=== PATIENT | female | born 1945 | race Caucasian/White ===

== ENCOUNTER 2017-03-25 14:25 | Inpatient (IN) ==
[2017-03-25] MEDS ORDERED: ASPIRIN PO STA (14:43)
[2017-03-25] MEDS ORDERED: ASPIRIN ONE (14:58)
--- NOTE | 2017-03-25 15:12 | Diag Imaging Result Doc PS360 ---
EXAM: CHEST-PORTABLE HISTORY: CP TECHNIQUE: AP portable upright at 1500 COMMENT: There is cardiomegaly with left ventricular enlargement. There is minimal atelectasis in the right costophrenic angle. Otherwise the lung roth are clear. Considering differences in projection there is been no significant change since 03/31/2016. IMPRESSION: Borderline cardiomegaly. Minimal right lower lobe atelectasis. Electronically signed by Freddy Montoya 03/25/2017 3:10 PM
[2017-03-25 15:30] LABS: URINE CULTURE NEEDED? NO; URINE MICRO REVIEW NEEDED? NO; URINE SOURCE CLEAN CATCH
[2017-03-25 15:42] LABS: INR 0.98; PROTIME 10.3 Seconds (9.2-11.7)
[2017-03-25 15:49] LABS: ALBUMIN 3.6 g/dL (3.5-5.0); CALCIUM 9.1 mg/dL (8.8-10.2); MAGNESIUM 1.6 mg/dL (1.5-2.7); POTASSIUM 3.9 mmol/L (3.5-5.1); TOTAL BILIRUBIN 0.28 mg/dL (0.20-1.00); TOTAL PROTEIN 6.6 g/dL (6.3-8.3)
[2017-03-25 15:55] LABS: MANUAL DIFF NEEDED? NO
[2017-03-25 15:56] LABS: BASO% 0.4 % (0.0-0.8); EOS# 0.88 X1000 (0.0-0.7); HEMATOCRIT 36.9 % (37.0-47.0); HEMOGLOBIN 12.4 g/dL (12.0-16.0); IMM GRAN# 0.08 X1000 (0.0-0.04); IMM GRAN% 0.4 % (0.0-0.5); LYMPH% 45.8 % (20.5-51.1); MCHC 33.6 g/dL (33-37); MCV 80.4 FL (81-99); MONO# 1.76 X1000 (0.11-0.59); MONO% 8.1 % (1.7-9.3); MPV 10.8 FL (7.4-10.4); NEUT% 41.3 % (42.2-75.2); PLT 369 X1000 (130-400); RBC 4.59 XMIL (4.2-5.4)
[2017-03-25 16:00] LABS: BILIRUBIN URINE NEGATIVE (NEGATIVE); BLOOD URINE NEGATIVE (NEGATIVE); COLOR YELLOW; GLUCOSE URINE NEGATIVE (NEGATIVE); LEUKOCYTES URINE NEGATIVE (NEGATIVE); NITRITE URINE NEGATIVE (NEGATIVE); PH URINE 5.5; PROTEIN URINE NEGATIVE (NEGATIVE); SP GRAVITY URINE 1.008; TURBIDITY URINE CLEAR (CLEAR); UROBILINOGEN URINE NORMAL (NORMAL)
[2017-03-25 16:01] LABS: UR EPITHELIAL CELLS <10 /HPF (<10); URINE BACTERIA NEGATIVE /HPF; URINE RBC <10 /HPF (<10); URINE WBC <10 /HPF (<10)
--- NOTE | 2017-03-25 17:02 | ED EKG INTERP ---
This chart was entered by Tamanna Cavazos, acting as scribe for Dorian Bourne MD. EKG Interpretation - EKG Time of EKG reading by physician:: 14:03 EKG Read and Signed by:: Dorian Bourne EKG Interpretation (*Must complete 3 of following elements*): Abnormal (normal sinus rhythm, left axis deviation, left bundle branch block, abnormal ECG) Rate: 78 [place]: left (left axis deviation) QRS: LBB Prior EKG Comparison: unchanged from prior This chart was documented by the indicated scribe, (Tamnana Cavazos) and accurately reflects the services I performed and decisions made by mn, Dorian Bourne MD, as attested by the provider's signature.
--- NOTE | 2017-03-25 17:20 | PROVIDER DOCUMENTATION ---
This chart was entered by Tamanna Cavazos, acting as scribe for Dorian Bourne MD. HPI-Chest Pain - General Chief Complaint: Epigastric Pain Stated Complaint: chest pain Time Seen by Provider: 03/25/17 14:30 Source: patient Allergies/Adverse Reactions: Patient Allergies Allergy/AdvReac Type Severity Reaction Status Date / Time azithromycin Allergy Severe HIVES Verified 03/25/17 14:44 oxycodone HCl * Allergy Severe HIVES Verified 03/25/17 14:44 [From Percocet] Sulfa (Sulfonamide Allergy Severe HIVES Verified 03/25/17 14:44 Antibiotics) [Sulfa(Sulfonamide Antibiotics)] tramadol Allergy Severe VOMITING Verified 03/25/17 14:44 erythromycin base Allergy Mild HIVES Verified 03/25/17 14:44 [Erythromycin Base] hydrocodone bitartrate * AdvReac Severe MIGRAINE Verified 03/25/17 14:44 [From Lortab] HEADACHE nalbuphine HCl * AdvReac Severe BRADYCARDIA Verified 03/25/17 14:44 [From Nubain] AND HYPOTENSION Home Medications: Home Medication List Medication Instructions Recorded Confirmed Last Taken Type Digoxin 125 mcg PO DAILY 01/02/15 03/25/17 03/25/17 History Furosemide [Lasix] 40 mg PO QHS 01/02/15 03/25/17 03/24/17 History Furosemide [Lasix] 80 mg PO QAM 01/02/15 03/25/17 03/25/17 History Metformin [Glucophage] 1,000 mg PO BID 01/02/15 03/25/17 03/25/17 History Valsartan [Diovan] 160 mg PO DAILY 01/02/15 03/25/17 03/25/17 History Carvedilol 25 mg PO BID 10/10/15 03/25/17 03/25/17 History Insulin Detemir [Levemir Flextouch] 50 unit SUBQ DAILY 10/10/15 03/25/17 History Aspirin 162 mg PO DAILY 03/25/17 03/25/17 03/25/17 History - History of Present Illness-CP Nature of Presenting Problem: pt is a 71 year old female present to the ER with cc of chest pain. Pt states that it is easing up now. She states she had an NV on march. She denies and stent placement. pt states she has a hx of ITP, Lupus, DM. Denies vomiting and diarrhea or SOB. Pt states when she started having chest pain she felt a little sick at the stomach. pt states chest pain started about an hour ago.. hs of cervical CA. Denies taking steroids. Pt states when chest pain started she was in the kitchen making some black sauce. Pt states last stress text x 1 year ago and there was no blockage. Location: reports: substernal Chest Pain Radiation: reports: no radiation Quality of Pain: reports: none Onset/Duration: 1-3 hours ago Timing: improving Context/Activities at Onset: reports: none Modifying Factors: improves with: nothing Associated Symptoms: reports: nausea. denies: fever/chills, vomiting Aspirin Treatment Today: provided at home Prior Chest Pain/Cardiac Workup: reports: heart attack, stress test Similar Symptoms Previously?: Yes Recently Seen Here or By Another Healthcare Provider: No Review of Systems - Adult - REVIEW OF SYSTEMS - ADULT Constitutional: denies: chills, fever, fatique Eyes: denies: discharge, dry eyes, decreased vision, blurred vision Ears, Nose, Mouth & Throat: denies: ear discharge, ear pain Cardiovascular: reports: chest pain. denies: edema, heart murmur Respiratory: reports: no symptoms reported Gastrointestinal: reports: no symptoms reported Genitourinary: reports: no symptoms reported Musculoskeletal: reports: no symptoms reported Integumentary: reports: no symptoms reported Neurological: reports: no symptoms reported Psychiatric: reports: no symptoms reported Endocrine: reports: no symptoms reported Hematologic/Lymphatic: reports: no symptoms reported Allergic/Immunologic: reports: no symptoms reported All Other Systems: Reviewed and Negative Past History - Adult - PAST MEDICAL HISTORY-ADULT Review of Records: reports: Nursing Assessment Review Major Childhood Illnesses: reports: denies history Cardiovascular: reports: A-Fib, CHF, HTN, other (LBB) Respiratory: reports: asthma Gastrointestinal: reports: denies history Obstetrical/Gynecological: reports: other (cervial ca) Genitourinary: reports: denies history Musculoskeletal: reports: denies history Neurological: reports: denies history Endocrine/Immune: reports: anemia (hemolytic), Diabetes, lupus, other ( leukocytosis) Other Conditions: reports: denies history - PRIOR SURGERIES/PROCEDURES Surgical/Procedure History: reports: appendectomy, cholecystectomy, hysterectomy , other (spleenectomy) - PRIOR HOSPITALIZATIONS Prior Hospitalizations: reports: none - IMMUNIZATION STATUS Childhood Immunizations: See Nurse Assessment Flu Vaccine: See Nurse Assessment - FAMILY HISTORY Family History: reviewed, not pertinent - SOCIAL HISTORY Smoking: denies Substance Use: denies Physical Exam-General - PHYSICAL EXAM-ADULT Initial Vital Signs Reviewed: Yes - CONSTITUTIONAL General Appearance: appears well, alert, no apparent distress - EYES Eyes: PERRL/EOMI, pink conjunctivae - HEAD, EARS, NOSE, MOUTH & THROAT HENMT: moist mucous membranes, normal ENT inspection, TMs normal, pharynx normal - NECK Neck: non-tender, full range of motion - RESPIRATORY Respiratory: chest non-tender, lungs clear, normal breath sounds, no pleuratic chest pain, no respiratory distress, no accessory muscle use - CARDIOVASCULAR Cardiovascular: normal peripheral pulses, regular rate, rhythm - GASTROINTESTINAL (ABDOMEN) Abdominal Exam: normal bowel sounds, non tender, soft - MUSCULOSKELETAL Back Exam: no CVA tenderness Extremity: normal range of motion, non-tender, normal gait, normal capillary refill - SKIN Integumentary: normal color, normal turgor, warm/dry - NEUROLOGIC Neurologic: grossly normal, no motor/sensory deficits - PSYCHIATRIC Psych/Mental Status: normal mood/affect, normal thought content, normal thought process, oriented x 3 Progress - PLAN OF CARE/RESULTS Progress/Plan/Lab Results: Vital Signs - 8 hr 03/25/17 14:36 03/25/17 16:22 Temperature 97.6 F Pulse Rate 79 78 Respiratory Rate 18 18 Blood Pressure 129/84 153/62 O2 Sat by Pulse Oximetry 97 97 Laboratory Results - last 24 hr 03/25/17 03/25/17 03/25/17 15:00 15:00 15:00 WBC 21.85 H RBC 4.59 Hgb 12.4 Hct 36.9 L MCV 80.4 L MCH 27.0 MCHC 33.6 RDW Std Deviation 16.1 H Plt Count 369 MPV 10.8 H Immature Gran % (Auto) 0.4 Neut % (Auto) 41.3 L Lymph % (Auto) 45.8 Mineral % (Auto) 8.1 Eos % (Auto) 4.0 Baso % (Auto) 0.4 Immature Gran # (Auto) 0.08 H Neut # (Auto) 9.04 H Lymph # (Auto) 10.00 H Mineral # (Auto) 1.76 H Eos # (Auto) 0.88 H Baso # (Auto) 0.09 PT INR PTT (Actin FS) D-Dimer Sodium 140 Potassium 3.9 Chloride 97 L Carbon Dioxide 25 Anion Gap 18 BUN 22 Creatinine 1.0 H Estimated GFR/1.73 m2 55 BUN/Creatinine Ratio 22 Glucose 171 H Calculated Osmolality 287 Calcium 9.1 Magnesium 1.6 Total Bilirubin 0.28 AST 15 ALT 11 Alkaline Phosphatase 65 Creatine Kinase 21 L Troponin T Mkm-C-Tnddejizcan Pept Total Protein 6.6 Albumin 3.6 Globulin 3.0 Albumin/Globulin Ratio 1.2 Amylase 41 Lipase 33 Urine Source Urine Color Urine Turbidity Urine pH Ur Specific [place] Urine Protein Ur Glucose (Stick) Ur Ketones (Stick) Urine Blood Urine Nitrite Urine Bilirubin Urobilinogen Dipstick Urine Leukocytes Urine WBC (Auto) Urine RBC (Auto) U Epithel Cells (Auto) Urine Bacteria (Auto) Digoxin 1.0 03/25/17 03/25/17 03/25/17 15:00 15:00 15:00 WBC RBC Hgb Hct MCV MCH MCHC RDW Std Deviation Plt Count MPV Immature Gran % (Auto) Neut % (Auto) Lymph % (Auto) Mineral % (Auto) Eos % (Auto) Baso % (Auto) Immature Gran # (Auto) Neut # (Auto) Lymph # (Auto) Mineral # (Auto) Eos # (Auto) Baso # (Auto) PT 10.3 INR 0.98 PTT (Actin FS) 25.0 D-Dimer 0.47 Sodium Potassium Chloride Carbon Dioxide Anion Gap BUN Creatinine Estimated GFR/1.73 m2 BUN/Creatinine Ratio Glucose Calculated Osmolality Calcium Magnesium Total Bilirubin AST ALT Alkaline Phosphatase Creatine Kinase Troponin T Hsa-Z-Mezckaiapzq Pept 470 H Total Protein Albumin Globulin Albumin/Globulin Ratio Amylase Lipase Urine Source Urine Color Urine Turbidity Urine pH Ur Specific [place] Urine Protein Ur Glucose (Stick) Ur Ketones (Stick) Urine Blood Urine Nitrite Urine Bilirubin Urobilinogen Dipstick Urine Leukocytes Urine WBC (Auto) Urine RBC (Auto) U Epithel Cells (Auto) Urine Bacteria (Auto) Digoxin 03/25/17 03/25/17 15:00 15:00 WBC RBC Hgb Hct MCV MCH MCHC RDW Std Deviation Plt Count MPV Immature Gran % (Auto) Neut % (Auto) Lymph % (Auto) Mineral % (Auto) Eos % (Auto) Baso % (Auto) Immature Gran # (Auto) Neut # (Auto) Lymph # (Auto) Mineral # (Auto) Eos # (Auto) Baso # (Auto) PT INR PTT (Actin FS) D-Dimer Sodium Potassium Chloride Carbon Dioxide Anion Gap BUN Creatinine Estimated GFR/1.73 m2 BUN/Creatinine Ratio Glucose Calculated Osmolality Calcium Magnesium Total Bilirubin AST ALT Alkaline Phosphatase Creatine Kinase Troponin T < 0.010 Epw-R-Ifugzwolhia Pept Total Protein Albumin Globulin Albumin/Globulin Ratio Amylase Lipase Urine Source CLEAN CATCH Urine Color YELLOW Urine Turbidity CLEAR Urine pH 5.5 Ur Specific [place] 1.008 Urine Protein NEGATIVE Ur Glucose (Stick) NEGATIVE Ur Ketones (Stick) NEGATIVE Urine Blood NEGATIVE Urine Nitrite NEGATIVE Urine Bilirubin NEGATIVE Urobilinogen Dipstick NORMAL Urine Leukocytes NEGATIVE Urine WBC (Auto) <10 Urine RBC (Auto) <10 U Epithel Cells (Auto) <10 Urine Bacteria (Auto) NEGATIVE Digoxin Orders Category Date Time Status Cardiac Monitoring DIRECTED Care 03/25/17 14:43 Active Saline Loc NOW Care 03/25/17 14:43 Active CHEST-PORTABLE [RAD] Stat Exams 03/25/17 14:43 Completed AMYLASE [CHEM] Stat Lab 03/25/17 15:00 Completed CBC WITH ELECTRONIC DIFF [HEME] Stat Lab 03/25/17 15:00 Completed CK PROFILE [SP CHEM] Stat Lab 03/25/17 15:00 Completed COMPREHENSIVE METABOLIC PANEL [CHEM] Stat Lab 03/25/17 15:00 Completed D-DIMER [CHEM] Stat Lab 03/25/17 15:00 Completed DIGOXIN [TDM] Stat Lab 03/25/17 15:00 Completed LIPASE [CHEM] Stat Lab 03/25/17 15:00 Completed MAGNESIUM [CHEM] Stat Lab 03/25/17 15:00 Completed PRO B-NATRIURETIC PEPTIDE Stat Lab 03/25/17 15:00 Completed PROTIME WITH INR [COAG] Stat Lab 03/25/17 15:00 Completed PTT [COAG] Stat Lab 03/25/17 15:00 Completed TROPONIN T Stat Lab 03/25/17 15:00 Completed UA NIMS W/REFLEX CULT [URINALYSIS] Stat Lab 03/25/17 15:00 Completed Aspirin Med 03/25/17 14:58 Discontinued 162 mg .ROUTE .STK-MED ONE Aspirin Med 03/25/17 14:43 Discontinued 325 mg PO STAT STA EKG [EKG] Stat Ther 03/25/17 14:43 Ordered Result Diagrams: 03/25/17 15:00 03/25/17 15:00 - XRAY 1 XRAY: Bilateral XRAY Study: Chest Impression: Abnormal (borderline cardiomegaly. minimal right lower lobe atelectasis (scalfano)) - CONSULTS/PCP/HOSPITALIST Notification Time Discussed: 17:19 Reason/Comments: Admit to Dr. Brothers Consult Disposition: Admit Departure - Departure Time of Disposition Decision: 17:14 DIAGNOSIS: Chest pain Qualifiers: Chest pain type: unspecified Qualified Code(s): R07.9 - Chest pain, unspecified Disposition: ADMITTED INPATIENT 09 Certified Medical Emergency: Emergent Condition: Stable Referrals and Follow-Ups: None,PCP [Primary Care Provider] - - Critical Care Note This patient required my direct & personal management of CC.: No This chart was documented by the indicated scribe, (Tamanna Cavazos) and accurately reflects the services I performed and decisions made by me, Dorian Bourne MD, as attested by the provider's signature.
[2017-03-25] MEDS ORDERED: ZOFRAN IV PRN (18:12)
[2017-03-25] MEDS ORDERED: GLUCOPHAGE PO SCH (19:00)
[2017-03-25] MEDS ORDERED: MAGNESIUM SULFATE 2 GM/S.W.I. 2 GM/50 ML IVPB IV ONE (19:45)
[2017-03-25] MEDS: LASIX PO SCH (20:30)
[2017-03-25] MEDS: COREG PO SCH (20:30)
[2017-03-25] MEDS: HUMULIN R SUBQ SCH (20:35)
--- NOTE | 2017-03-25 21:06 | HISTORY AND PHYSICAL ---
TREASURER: Dr. Bridgette Luke M.D. DEVELOPMENT VICE PRESIDENT: Dr.John Latasha M.D. CHIEF COMPLAINT: Chest pain this afternoon while I was cooking. HISTORY OF PRESENT ILLNESS: Ms Madrid is a 71-year-old female with a history of ITP, hemolytic anemia, coronary artery disease and CHF who presented to the ER today with a chief complaint of chest pain that started this afternoon when the patient was cooking on the grill. The patient reports that she was getting ready to take some meat off the grill when all of a sudden she started to experience chest pain that was associated with shortness of breath. The patient reports that she felt a little dizzy but denied having any nausea, vomiting or diaphoresis associated with the pain. Upon arrival to the ER the patient was still suffering with chest pain. She was given aspirin in the ER and eventually her pain subsided. At this time the patient states that she is chest pain-free. The patient states that it has been several years since she had a stress test done. She is followed by the arts therapist in [place]. Initial cardiac enzymes done in the ER noted to be negative and the EKG shows left bundle-branch block which appears to be present on a prior EKG. PAST MEDICAL HISTORY: 1. ITP. 2. Hemolytic anemia. 3. Hypertension. 4. Insulin-dependent diabetes mellitus type 2. 5. Morbid obesity. 6. CHF. 7. Coronary artery disease. SURGICAL HISTORY: 1. Appendectomy. 2. Cholecystectomy. 3. Hysterectomy. 4. Splenectomy. 5. Bladder sling. FAMILY HISTORY: Positive for coronary artery disease on her father's side. The patient's father also had coronary artery disease. SOCIAL HISTORY: The patient denies any tobacco, alcohol or illicit drug use. ALLERGIES: 1. Sulfa drugs. 2. Erythromycin. 3. Nubain. 4. Oxycodone. HOME MEDICATION: 1. Lasix 40 mg p.o. at bedtime. 2. Aspirin 162 mg p.o. daily. 3. Diovan 160 mg p.o. daily. 4. Glucophage 1000 mg p.o. twice a day. 5. Levemir 50 units subcutaneous daily. 6. Lasix 80 mg p.o. in the morning. 7. Digoxin 125 mcg oral daily. 8. Coreg 25 mg p.o. twice a day. REVIEW OF SYSTEMS: All other review of systems are negative. Please refer to the history of present illness for pertinent positives and negatives. PHYSICAL EXAMINATION: VITAL SIGNS: Temperature 97.6 degrees, blood pressure 139/79, heart rate 81, respirations 20, O2 saturations 98% on room air. GENERAL: This is an elderly female lying in bed in no acute distress. HEENT: Head normocephalic, atraumatic. Conjunctiva clear, EOMI, ANKIT. NECK: Supple, no JVD. No lymphadenopathy. No carotid bruits. LUNGS: Clear to auscultation bilaterally. No wheezing. No rales. No rhonchi. ABDOMEN: Positive bowel sounds. Soft, nontender, nondistended. EXTREMITIES: No edema. No cyanosis. No calf tenderness. NEUROLOGIC: The patient is alert oriented x3. No focal neurologic deficits noted. LABS: White blood cell count 21.8, hemoglobin 12, hematocrit 36, platelets 369, 000, D-dimer 0.47. Sodium 140, potassium 3.9, chloride 97, CO2 25, BUN 22, creatinine 1, glucose 171, calcium 9.1, magnesium 1.6, AST 15, ALT 11, CK 21, troponin T less than 0.01. CRP 23, ProBNP 470, albumin 3.6. UA negative. Chest x-ray shows borderline cardiomegaly. Minimal right lower lobe atelectasis. EKG shows left bundle branch block which appears to be chronic. ASSESSMENT AND PLAN: 1. Chest pain. Will admit the patient and place on telemetry and rule out MN with serial cardiac enzymes and repeat EKG. Will also consult cardiology given the patient's cardiac history. Patient may end up requiring a stress test. 2. Leukocytosis. The chest x-ray and urinalysis so far did not indicate any evidence of infection. Will check a CRP and a sedimentation rate and monitor the patient off of antibiotics. May consider a CT of the chest, abdomen and pelvis to rule out occult infection. 3. History of idiopathic thrombocytopenia. Aware. 4. Hemolytic anemia. Aware. Stable. 5. Hypertension. Controlled. 6. Insulin-dependent diabetes mellitus type 2. Will restart patient's Lantus and cover the patient with sliding scale insulin. Will hold the metformin at this time. 7. Morbid obesity. Aware. 8. Coronary artery disease. Continue on the current cardiac medications. 9. Deep vein thrombosis prophylaxis. Will start the patient on SCDs. cc: Mary Lou Hoffman MD MTDD
[2017-03-25] MEDS: TYLENOL PO PRN (22:55)
[2017-03-26] MEDS: HUMULIN R SUBQ SCH ×4 (06:29→21:30)
[2017-03-26 07:00] LABS: HEMATOCRIT 36.2 % (37.0-47.0); HEMOGLOBIN 11.9 g/dL (12.0-16.0); MCH 26.9 PG (27-31); MCHC 32.9 g/dL (33-37); MCV 81.9 FL (81-99); MPV 11.6 FL (7.4-10.4); RBC 4.42 XMIL (4.2-5.4)
[2017-03-26 07:42] LABS: AGAP 15; BUN 19 mg/dL (8-22); CALCIUM 8.7 mg/dL (8.8-10.2); CHLORIDE 101 mmol/L (98-107); COSMO 289; DIGOXIN 0.9 ng/mL (0.9-2.0); MAGNESIUM 2.2 mg/dL (1.5-2.7); SODIUM 142 mmol/L (136-145); TCO2 26 mmol/L (25-35)
[2017-03-26 07:52] LABS: FREE T4 1.31 ng/dL (0.93-1.70)
[2017-03-26] MEDS: DIOVAN PO SCH (08:21)
[2017-03-26] MEDS: LANOXIN PO SCH (08:21)
[2017-03-26] MEDS: COREG PO SCH ×2 (08:21→21:29)
[2017-03-26] MEDS: LASIX PO SCH ×2 (08:21→21:29)
[2017-03-26] MEDS: ASPIRIN PO SCH (08:21)
[2017-03-26] MEDS ORDERED: LEVEMIR SUBQ SCH (09:00)
--- NOTE | 2017-03-26 15:28 | CONSULTATION ---
DATE OF CONSULTATION: 03/26/2017 INDICATION: Chest pain. HISTORY OF PRESENT ILLNESS: Ms. aMdrid is a 71-year-old white female with a history of some degree of heart failure. Unclear if this is systolic or diastolic. She gets all of her care taken care of in [place] by Dr. Bridgette Luke with [facility]. She presented for evaluation of chest discomfort that began yesterday. She was apparently seated in the kitchen preparing some food, had not actually eaten and experienced an episode of substernal chest pain with no radiation. She had some nausea associated with this but no diaphoresis, no shortness of breath. She reports compliance with all of her medications. She has had cardiac catheterization several years ago which per her report were normal. Last stress test she thinks was around 2 years ago or more. Again, this was normal. She has not missed any of her medications. No recent coughs. No recent fevers. PAST MEDICAL HISTORY: Significant for. 1. She says heart failure. I do not have any records of this. 2. ITP. 3. Hypertension. 4. Diabetes mellitus. 5. Morbid obesity. SOCIAL HISTORY: No alcohol, tobacco, or illicit drugs. FAMILY HISTORY: Significant for coronary disease in her father's side. REVIEW OF SYSTEMS: A 10 system review of systems is negative except for those mentioned in HPI. PHYSICAL EXAMINATION: Vital signs: She is afebrile. Heart rate is 67, blood pressure 134/50. General: She is in no acute distress. HEENT: Oropharynx is moist. Normal dentition. Eye examination shows pink conjunctivae. White sclerae. Neck: Examination shows no obvious thyromegaly or thyroid tenderness. JVP is not elevated. Cardiovascular: Regular rate and rhythm. No murmurs. She has no S3. She has no S4. No lower extremity edema. No carotid bruits. Chest: Clear bilaterally. No increased work of breathing. Abdomen: Soft, nontender, nondistended. She has no obvious organomegaly. Skin Exam: Warm and dry throughout without any rashes. Neurological: Moving all extremities well. Cranial nerves 2-12 are intact without any sensation deficits. Psychiatric: Alert, oriented, pleasant, normal mood and affect. PERTINENT DATA: She had an EKG performed March 25 at 1430 showing sinus rhythm left bundle. Subsequent EKG at on March 26 at 6:09 showed sinus rhythm, left bundle branch block. This is a chronic finding for her. She had a chest x-ray showing borderline cardiomegaly with minimal right lower lobe atelectasis. Laboratory data shows a white count of 17.7, hematocrit is 36.2, platelet count 261,000. Sodium 142, potassium 4, BUN 19, creatinine 0.7. Cardiac enzymes are negative. Her proBNP is minimally elevated at 470. ASSESSMENT: 1. Some form of heart failure presumably chronic and not in acute exacerbation. 2. Chest pain. PLAN: We will obtain records from [facility] and plan tentatively for myocardial perfusion scan in the morning. Further recommendations to follow. cc: Satish Ynag MD
[2017-03-26] MEDS ORDERED: INSULIN PEN NEEDLES ONE (15:38)
--- NOTE | 2017-03-26 16:20 | ECHO REPORT ---
ORDER DATE: 03/26/2017 INDICATION: Coronary disease. CHF. Chest pain. FINDINGS: 1. Right atrium is normal size at 3.5 cm. 2. There is mild tricuspid regurgitation. RV systolic pressure of 48. 3. Normal RV size and systolic function. 4. Trace pulmonic insufficiency. 5. Mild left atrial enlargement at 4.8 cm. 6. No mitral valve prolapse. Mild mitral regurgitation. 7. Dilated left ventricle with an end-diastolic dimension of 6.2. There is normal wall thicknesses with a posterior and interventricular septal wall thickness 1.1 cm each. Severe reduction in LV systolic function with an estimated EF of 25-30%. There is wall motion consistent with intraventricular conduction delay. 8. Aortic valve opens well. Although it is somewhat sclerotic it does not appear stenotic. There is trace aortic insufficiency. The valve appears trileaflet. 9. Aorta appears normal in visualized segments. 10. No pericardial effusion seen. cc: MD Mary Lou Lyman MD
--- NOTE | 2017-03-26 17:34 | PROGRESS NOTE ---
DATE: 03/26/2017 SUBJECTIVE: The patient is resting comfortably in bed. She states that she has not had any further shortness of breath or chest pain overnight or this morning. OBJECTIVE: Vital Signs: Temperature 98 degrees, blood pressure 146/57, heart rate 69, respirations 21, O2 saturation is 98% on 2 L nasal cannula. General: This is a morbidly obese female, lying in bed, in no acute distress. Head: Normocephalic, atraumatic. Heart: S1, S2. Normal. Regular rate and rhythm. Lungs: Clear to auscultation bilaterally. No wheezes. No rales. No rhonchi. Abdomen: Positive bowel sounds. Soft, nontender, nondistended. Extremities: No edema. No cyanosis. Neurological: Patient is alert and oriented x3. LABS: White blood cell count 17, hemoglobin 11, hematocrit 36, platelets 261,000, sodium 142, BUN 19, creatinine 0.7, glucose 166, calcium 8.7. Troponin less than 0.01. ASSESSMENT AND PLAN: 1. Chest pain. This appears to have resolved. We will await further recommendations from the information tech regarding further testing. 2. History of idiopathic thrombocytopenia. Aware. 3. Leukocytosis. The patient does not have an obvious source of infection. white blood cell count is trending downward. Would recommend monitoring this closely. 4. History of hemolytic anemia. Aware. 5. Diabetes mellitus type 2. Continue on Levemir twice a day. 6. Disposition. Will await further recommendations from the information tech regarding further testing versus discharge. cc: Mary Lou Hoffman MD
[2017-03-26] MEDS: LEVEMIR SUBQ SCH (21:29)
[2017-03-26] MEDS: TYLENOL PO PRN (23:44)
--- NOTE | 2017-03-27 05:45 | EKG Report ---
Test Performed on : 03/26/2017 06:09:59 AM Test Reason : chest pain Blood Pressure : / mmHG Vent. Rate : 066 BPM Atrial Rate : 066 BPM P-R Int : 218 ms QRS Dur : 196 ms QT Int : 452 ms P-R-T Axes : 050 -57 108 degrees QTc Int : 473 ms Sinus rhythm. with 1st degree AV block. Left axis deviation Left bundle branch block Abnormal ECG When compared with ECG of 02-JAN-2015 21:03, No significant change was found Confirmed by Brian FIGUEROA, Sonido Brothers ([id number]) on 03/27/2017 10:56:01 AM
[2017-03-27] MEDS: HUMULIN R SUBQ SCH ×3 (06:25→16:34)
[2017-03-27 07:19] LABS: AGAP 12; BUN 16 mg/dL (8-22); CALCIUM 8.6 mg/dL (8.8-10.2); CHLORIDE 102 mmol/L (98-107); COSMO 289; SODIUM 143 mmol/L (136-145); TCO2 29 mmol/L (25-35)
[2017-03-27] MEDS ORDERED: LEXISCAN ONE (08:39)
[2017-03-27] MEDS: DIOVAN PO SCH (10:33)
[2017-03-27] MEDS: LANOXIN PO SCH ×2 (10:33→10:38)
[2017-03-27] MEDS: ASPIRIN PO SCH (10:34)
[2017-03-27] MEDS: COREG PO SCH (10:34)
[2017-03-27] MEDS: LEVEMIR SUBQ SCH (10:35)
[2017-03-27] MEDS: LASIX PO SCH (10:45)
[2017-03-27 14:55] VITALS: BP 145/61
--- NOTE | 2017-03-27 15:09 | PROGRESS NOTE ---
DATE: 03/27/2017 SUBJECTIVE: Ms. Madrid has not had any orthopnea. No chest pain overnight. PHYSICAL EXAMINATION: Vital signs: She is afebrile. Her heart rate is 65. Blood pressure 149/67. General: She is in no acute distress. Cardiovascular: She is in a regular rate and rhythm. She has no obvious murmurs. She has no S3. No lower extremity edema. Chest: Exam is clear bilaterally. She has no increased work of breathing. Abdomen: Soft, nontender, nondistended. She has no obvious organomegaly. Skin: Warm and dry throughout. PERTINENT DATA: She had a myocardial perfusion scan which did not show any evidence of reversibility. She had a reversed ejection fraction of 38% consistent with her previous history of congestive heart failure. This appears relatively stable. BUN and creatinine were 16 and 0.8. ASSESSMENT: 1. Chest discomfort. 2. Systolic heart failure. PLAN: Patient seems euvolemic presently. Her chest discomfort was very atypical and does not seem consistent with a cardiac etiology. I would recommend she be discharged from a cardiovascular standpoint today to follow up with Dr. Bridgette Luke, her primary manager country. I have relayed this information to the hospitalist service. cc: Satish Yang MD
--- NOTE | 2017-03-27 16:15 | Diag Imaging Result Document ---
PROCEDURE NAME: MYOCARDIAL PERF SCAN, STR/REST - 03/27/2017 PROCEDURE: Lexiscan Cardiolite stress test. TECHNIQUE: Lexiscan was infused per standard protocol. Baseline electrocardiogram revealed left bundle branch block. Stress electrocardiogram was nondiagnostic. 12.9 mCi of Cardiolite was injected for the rest phase. 36.8 mCi of Cardiolite was injected for the stress phase. Gated SPECT images were obtained in standard views. FINDINGS: Images revealed left ventricle was dilated. There was a fixed defect noted in the left ventricular apex. In addition, there was fixed defect in the anteroapical portion. There is low- grade small-sized catarino-infarct ischemia in the distal anteroapical portion. Left ventricular ejection fraction by gated SPECT was 40%. There was apical hypokinesis. CONCLUSIONS: 1. No chest pain. 2. Nondiagnostic stress electrocardiogram baseline left bundle branch block was noted. 3. Left ventricle was dilated. 4. Left ventricular ejection fraction by gated SPECT was 40%. There is apical hypokinesis. 5. Myocardial perfusion images revealed a fixed defect in the distal anteroapical portion diagnostic of infarct or scar. In addition, there is low-grade small-sized catarino-infarct ischemia in the left ventricular apex. cc: MD Satish Chanel MD
--- NOTE | 2017-03-28 11:28 | DISCHARGE SUMMARY ---
ADMISSION DATE: 03/25/2017 DISCHARGE DATE: 03/27/2017 DISCHARGE DIAGNOSES: 1. Atypical chest pain. 2. Luis syndrome. 3. History of hemolytic anemia. 4. Idiopathic thrombocytopenic purpura. 5. Diabetes. CONSULTATIONS: Cardiology. TESTING: Echocardiogram with an EF of 25-30%, dilated LV, otherwise unremarkable myocardial perfusion scan. Reportedly showed no areas of reversibility. EF around 38%. HOSPITAL COURSE: Briefly, this is a 71-year-old female with a history of Luis syndrome, hypertension, diabetes, and CHF who came in with chest pain and dizziness. Workup in the ER was unremarkable. She did have some significant leukocytosis. 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 That is not unusual for her. She is followed by hematology/oncology in [place]. Looking back at her white counts previously, she has been anywhere from 13,[address] up to 25,000. Pretty much since 2011, she has been as high as 20,000 so this is not a new problem. Her white count here initially was 21,000. There was no evidence of infection. Blood cultures were clear. Urine was unremarkable. Chest x-ray, there was some questionable atelectasis but she did not have any focal infiltrate. In any case, she had a cardiac workup which included an echocardiogram which was pretty unremarkable except for her baseline systolic dysfunction, EF 25-30%. Dr. Yang was consulted. He recommended myocardial perfusion scan which again was unrevealing. She was chest pain free and looking well on the so she was discharged home. Saturations were 100% on room air. DISCHARGE MEDICATIONS: Aspirin 162 daily, Coreg 25 b.i.d., digoxin 125 daily, Lasix 40 at night and 80 in the morning, Levemir 50 daily, metformin 1 g b.i.d., valsartan 160 daily. DISCHARGE CONDITION: Stable. DISCHARGE INSTRUCTIONS: She is to return and follow up with [facility] and her assisted living home director/oncologist in [place] is Dr. Kothari and Dr. Holder. A 32 minute discharge. cc: uJsto Mays MD
== END 2017-03-27 16:47 | disposition home or self-care (01) ==
LOC: ED 14:25 → SUATTDRO 18:44 → 3N 18:44
PROVIDERS: ATTEND Internal Medicine